=== PATIENT | male | born 1940 | race Caucasian/White ===

== ENCOUNTER 2022-08-15 06:14 | Day surgery (SDC) | payer MEDICARE, BC ==
[2022-08-15] VITALS (13 sets, daily range): BP systolic 101–121; BP diastolic 52–65
[~2022-08-15] VITALS: Ht 177.8 cm; Wt 94.4 kg
[~2022-08-15 06:14] MED LIST: ASPI-1071 PO; ATOR10TA87 PO; BUDE10.23 IH; CLOP75TA34 PO; FLAX100031 PO; FLO0.4C PO; LEVO50TA67 PO; METO-539 PO; OLME20TA15 PO; SALM1CAP4 PO
[2022-08-15] MEDS ORDERED: diphenhydrAMINE 25mg capsule PO PRN ×2 (06:40→08:10)
[2022-08-15] MEDS ORDERED: LORazepam 0.5 MG tablet PO PRN ×2 (06:40→08:10)
[2022-08-15] MEDS ORDERED: normal saline 1,000 ML IV SCH (06:40)
[2022-08-15 07:19] LABS: BASOPHILS # (AUTO) 0.1 X10'3 (0-0.2); BASOPHILS % (AUTO) 1.1 % (0-1); EOSINOPHILS # (AUTO) 0.2 X10'3 (0-0.9); EOSINOPHILS % (AUTO) 2.5 % (0-6); HEMATOCRIT 51.6 % (42.0-52.0); HEMOGLOBIN 17.7 g/dl (14.0-17.9); LYMPHOCYTES % (AUTO) 33.8 % (21-51); MEAN CORPUSCULAR HGB CONC 34.3 g/dL (33.0-36.5); MEAN CORPUSCULAR VOLUME 102.1 FL (78-98); MEAN PLATELET VOLUME 8.4 FL (7.4-10.4); MONOCYTES # (AUTO) 0.6 X10'3 (0-0.9); MONOCYTES % (AUTO) 10.6 % (2-12); NEUTROPHILS # (AUTO) 3.1 X10'3 (1.8-7.7); PLATELET COUNT 63 X10'3 (140-440); RED BLOOD COUNT 5.05 X10'6 (4.70-6.10)
[2022-08-15] MEDS ORDERED: FLUT1BLS4 (07:19)
[2022-08-15] MEDS ORDERED: UBID100C45 PO (07:19)
[2022-08-15] MEDS ORDERED: ZINC PO (07:19)
[2022-08-15] MEDS ORDERED: FEBU40TA3 PO (07:19)
[2022-08-15] MEDS ORDERED: LEVO150T PO (07:19)
[2022-08-15 07:21] LABS: APTT 29 SECONDS (22-32)
[2022-08-15] MEDS ORDERED: fentaNYL/PF 50MCG/1 ML 2ML syringe ONE (07:31)
[2022-08-15] MEDS ORDERED: midazolam 1 mg/ML 2ml injection ONE (07:31)
[2022-08-15] MEDS ORDERED: nitroGLYCERIN-Tridil 50MG/D5W 250 ML IV ONE (07:31)
[2022-08-15] MEDS ORDERED: verapamil 2.5 mg/ml inj IV ONE (07:31)
[2022-08-15] MEDS ORDERED: heparin 1,000unit/ml 10ml vial 10 ML ONE (07:32)
[2022-08-15] MEDS ORDERED: LIDOcaine 1% (10mg/ml) 2ml vial ONE (07:32)
[2022-08-15] MEDS ORDERED: iohexol 350MG/ML 100ml bottle IV ONE ×2 (07:32→08:51)
[2022-08-15] MEDS ORDERED: iohexol 350 MG/ML 50ML vial IV ONE (07:32)
[2022-08-15 07:55] LABS: ALBUMIN 3.8 G/DL (3.4-5.0); ANION GAP 12 (8-16); BLOOD UREA NITROGEN 20 MG/DL (7-18); BUN/CREATININE RATIO 13.6 (5.4-32.0); CALCIUM 9.3 MG/DL (8.5-10.1); CHLORIDE 106 MMOL/L (99-107); CREATININE 1.47 MG/DL (0.60-1.10); GLUCOSE 97 MG/DL (70-104); POTASSIUM 4.3 MMOL/L (3.5-5.1); SODIUM 141 MMOL/L (135-145); TOTAL CARBON DIOXIDE 22.9 MMOL/L (24-32); eGFR 46 ML/MIN
[2022-08-15] MEDS ORDERED: sodium bicarbonate 1meq/ml syr 150 ML in dextrose 5%-water 1,000 ML IV ONE (08:10)
[2022-08-15] MEDS ORDERED: heparin 25,000 UNIT/250ml bag 250 ML IV ONE (08:42)
[2022-08-15] MEDS ORDERED: clopidogrel 300mg tablet ONE (09:08)
[2022-08-15] MEDS ORDERED: HYDROcodone/acetaminophen 10/325mg tab PO PRN (10:00)
[2022-08-15] MEDS ORDERED: ondansetron/PF 4mg/2ml inj IV PRN (10:00)
[2022-08-15] MEDS ORDERED: proCHLORperazine 10 MG/2 ml inj IV PRN (10:00)
[2022-08-15] MEDS ORDERED: OXAZEpam 15mg capsule PO PRN (10:00)
[2022-08-15] MEDS ORDERED: HYDROcodone/acetaminophen 5mg/325mg tablet PO PRN (10:00)
[2022-08-15] MEDS ORDERED: SODIUM BICARB 150mEq/D5W 1L 1,000 ML IV ONE (10:05)
--- NOTE | 2022-08-15 10:15 | NUR ---
Waiting to deflate vasc band due to heparin drip still infusing and due to low platelet count, aware.
--- NOTE | 2022-08-15 10:30 | NUR ---
Heparin drip turned off per orders.
[2022-08-15] MEDS ORDERED: ACETYLCYSTEINE 200 MG/1 ML 4 ML ORAL SOLUTION PO SCH (11:10)
--- NOTE | 2022-08-15 12:45 | NUR ---
Dr. Mcneill at bedside talking with pt and . Dr. Mcneill gave okay for pt to go home at 1500.
[2022-08-16] MEDS ORDERED: clopidogrel 75mg tablet PO SCH (08:00)
== END 2022-08-15 15:00 | disposition home or self-care (01) ==
LOC: SSTAY O 06:14
PROVIDERS: ATTEND Internal Medicine Cardiovascular Disease
DX: R94.39 Abnormal result of other cardiovascular function study (principal); I25.10 Atherosclerotic heart disease of native coronary artery without angina pectoris; E78.5 Hyperlipidemia, unspecified; I12.9 Hypertensive chronic kidney disease with stage 1 through stage 4 chronic kidney disease, or unspecified chronic kidney disease; N18.9 Chronic kidney disease, unspecified; G47.30 Sleep apnea, unspecified; E66.9 Obesity, unspecified; E03.9 Hypothyroidism, unspecified; Z79.01 Long term (current) use of anticoagulants; Z79.899 Other long term (current) drug therapy
CPT/HCPCS: 36415; 76937; 80048; 85025; 85347; 85610; 85730; 93005; 93459; 99152; 99153; C1725; C1751; C1769; C1874; C1894; C9600; J1644; J2250; J3010; J3490; J7030; Q0163; Q9967; A4615; A6258; A6402

== ENCOUNTER 2022-09-19 06:15 | Day surgery (SDC) | payer MEDICARE, BC ==
[2022-09-18 10:43] LABS: BASOPHILS # (AUTO) 0.1 X10'3 (0-0.2); BASOPHILS % (AUTO) 0.6 % (0-1); EOSINOPHILS # (AUTO) 0.1 X10'3 (0-0.9); HEMATOCRIT 48.9 % (42.0-52.0); HEMOGLOBIN 16.9 g/dl (14.0-17.9); LYMPHOCYTES # (AUTO) 1.4 X10'3 (1.1-4.8); LYMPHOCYTES % (AUTO) 12.4 % (21-51); MEAN CORPUSCULAR HEMOGLOBIN 35.5 PG (27.0-31.0); MEAN CORPUSCULAR HGB CONC 34.6 g/dL (33.0-36.5); MEAN CORPUSCULAR VOLUME 102.5 FL (78-98); MEAN PLATELET VOLUME 8.2 FL (7.4-10.4); MONOCYTES # (AUTO) 1.1 X10'3 (0-0.9); MONOCYTES % (AUTO) 10.4 % (2-12); NEUTROPHILS # (AUTO) 8.2 X10'3 (1.8-7.7); NEUTROPHILS % (AUTO) 75.6 % (42-75); PLATELET COUNT 75 X10'3 (140-440); RED BLOOD COUNT 4.77 X10'6 (4.70-6.10); RED CELL DISTRIBUTION WIDTH 14.7 % (11.5-14.5); WHITE BLOOD COUNT 10.9 X10'3 (4.5-11.0)
[2022-09-18 10:48] LABS: ALBUMIN 3.8 G/DL (3.4-5.0); ANION GAP 7 (8-16); BLOOD UREA NITROGEN 19 MG/DL (7-18); BUN/CREATININE RATIO 10.1 (10.0-20.0); CALCIUM 9.9 MG/DL (8.5-10.1); CHLORIDE 106 MMOL/L (99-107); CREATININE 1.89 MG/DL (0.60-1.10); GLUCOSE 105 MG/DL (70-104); SODIUM 142 MMOL/L (135-145); TOTAL CARBON DIOXIDE 28.8 MMOL/L (24-32); eGFR 34 ML/MIN
[2022-09-18 10:50] LABS: APTT 30 SECONDS (22-32)
[2022-09-19] VITALS (13 sets, daily range): BP systolic 93–122; BP diastolic 50–73
[~2022-09-19] VITALS: Ht 177.8 cm; Wt 93.5 kg
[~2022-09-19 06:15] MED LIST changes: -ASPI-1071 PO; -BUDE10.23 IH; +FEBU40TA3 PO; -FLO0.4C PO; +FLUT1BLS4; +LEVO150T PO; -LEVO50TA67 PO; +UBID100C45 PO; +ZINC PO
[2022-09-19] MEDS ORDERED: acetylcysteine 200 MG/ml 4ml vial PO PRN (06:27)
[2022-09-19] MEDS ORDERED: normal saline 1,000 ML IV SCH (06:30)
[2022-09-19] MEDS ORDERED: diphenhydrAMINE 25mg capsule PO PRN (06:30)
[2022-09-19] MEDS ORDERED: LORazepam 0.5 MG tablet PO PRN (06:30)
[2022-09-19] MEDS ORDERED: ASPI-611 PO (06:35)
[2022-09-19] MEDS ORDERED: ROSU40TA22 PO (06:36)
[2022-09-19] MEDS ORDERED: heparin 25,000 UNIT/250ml bag 250 ML IV ONE (07:23)
[2022-09-19] MEDS ORDERED: nitroGLYCERIN-Tridil 50MG/D5W 250 ML IV ONE (07:23)
[2022-09-19] MEDS ORDERED: LIDOcaine 1% 30ml preserv. free vial ONE (07:24)
[2022-09-19] MEDS ORDERED: midazolam 1 mg/ML 2ml injection ONE (07:24)
[2022-09-19] MEDS ORDERED: iohexol 350MG/ML 100ml bottle IV ONE (07:24)
[2022-09-19] MEDS ORDERED: heparin 1,000unit/ml 10ml vial 10 ML ONE (07:24)
[2022-09-19] MEDS ORDERED: verapamil 2.5 mg/ml inj IV ONE (07:24)
[2022-09-19] MEDS ORDERED: fentaNYL/PF 50MCG/1 ML 2ML syringe ONE (07:24)
[2022-09-19] MEDS ORDERED: clopidogrel 300mg tablet ONE (09:41)
[2022-09-19] MEDS ORDERED: clopidogrel 75mg tablet PO SCH (10:35)
[2022-09-20] MEDS ORDERED: SODIUM BICARB 150mEq/D5W 1L 999 ML IV SCH ×2 (06:30)
== END 2022-09-19 16:00 | disposition home or self-care (01) ==
LOC: SSTAY O 06:15
PROVIDERS: ATTEND Internal Medicine Cardiovascular Disease
DX: I25.10 Atherosclerotic heart disease of native coronary artery without angina pectoris (principal); E78.5 Hyperlipidemia, unspecified; I10 Essential (primary) hypertension; Z79.82 Long term (current) use of aspirin; Z79.01 Long term (current) use of anticoagulants
CPT/HCPCS: 36415; 76937; 80048; 85025; 85347; 85610; 85730; 93005; 99152; 99153; A6258; C1725; C1751; C1769; C1874; C1892; C1894; C9600; C9601; J1644; J2250; J3010; J3490; J7030; Q0163; Q9967; A4615; A6402

== ENCOUNTER 2023-01-27 03:03 | Emergency (ER) | payer MEDICARE, BC ==
[~2023-01-27] VITALS: Ht 177.8 cm; Wt 86.4 kg
[~2023-01-27 03:03] MED LIST changes: -ATOR10TA87 PO; -FEBU40TA3 PO; -FLAX100031 PO; -FLUT1BLS4; +LACT10SO88 PO; -OLME20TA15 PO; +ROSU40TA22 PO; -SALM1CAP4 PO; -UBID100C45 PO; -ZINC PO
[2023-01-27 03:20] VITALS: BP 123/68; PULSE 75; RESP 18; O2SAT 96
[2023-01-27] MEDS ORDERED: oxymetazoline 15 ML nasal spray NS ONE (04:15)
[2023-01-27 05:06] LABS: ALBUMIN 2.9 G/DL (3.4-5.0); ANION GAP 11 (8-16); BLOOD UREA NITROGEN 25 MG/DL (7-18); BUN/CREATININE RATIO 16.7 (10.0-20.0); CALCIUM 9.6 MG/DL (8.5-10.1); CHLORIDE 104 MMOL/L (99-107); GLUCOSE 108 MG/DL (70-104); POTASSIUM 4.2 MMOL/L (3.5-5.1); SODIUM 139 MMOL/L (135-145); eCRCL 40 ML/MIN; eGFR 45 ML/MIN
[2023-01-27 05:08] LABS: APTT 31 SECONDS (22-32); INR 1.2 INR; PROTHROMBIN TIME 13.2 SECONDS (9.0-12.0)
[2023-01-27] MEDS ORDERED: CEPH-585 PO (05:34)
[2023-01-27 05:48] LABS: BASOPHILS % (AUTO) 0.5 % (0-1); EOSINOPHILS # (AUTO) 0.1 X10'3 (0-0.9); EOSINOPHILS % (AUTO) 2.1 % (0-6); HEMATOCRIT 44.6 % (42.0-52.0); HEMOGLOBIN 15.5 g/dl (14.0-17.9); LYMPHOCYTES # (AUTO) 0.8 X10'3 (1.1-4.8); MEAN CORPUSCULAR HEMOGLOBIN 37.7 PG (27.0-31.0); MEAN CORPUSCULAR HGB CONC 34.7 g/dL (33.0-36.5); MEAN CORPUSCULAR VOLUME 108.8 FL (78-98); MEAN PLATELET VOLUME 7.3 FL (7.4-10.4); MONOCYTES # (AUTO) 0.7 X10'3 (0-0.9); MONOCYTES % (AUTO) 13.9 % (2-12); NEUTROPHILS # (AUTO) 3.6 X10'3 (1.8-7.7); NEUTROPHILS % (AUTO) 68.5 % (42-75); PLATELET COUNT 87 X10'3 (140-440); RED CELL DISTRIBUTION WIDTH 17.1 % (11.5-14.5); WHITE BLOOD COUNT 5.2 X10'3 (4.5-11.0)
[2023-01-27 05:55] VITALS: TEMP 97.7
== END 2023-01-27 06:03 | disposition home or self-care (01) ==
LOC: ER 03:04
DX: R04.0 Epistaxis (principal); Z79.899 Other long term (current) drug therapy
CPT/HCPCS: 30901; 30903; 80048; 85025; 85610; 85730; 99284

== ENCOUNTER 2023-02-11 07:36 | Day surgery (SDC) | payer MEDICARE, BC ==
[~2023-02-11] VITALS: Ht 177.8 cm; Wt 91.8 kg
[2023-02-11] VITALS (7 sets, daily range): BP systolic 113–128; BP diastolic 58–71; PULSE 74–78; RESP 14–17; TEMP 98; O2SAT 93–95
[2023-02-11] MEDS ORDERED: albumin 25% 100mL bottle x 1 IV PRN (08:00)
[2023-02-11] MEDS ORDERED: normal saline 1000ml 1,000 ML IV PRN (08:00)
[2023-02-11] MEDS ORDERED: FLUT1BLS4 INH (09:15)
[2023-02-11] MEDS ORDERED: IPRA3AMP31 NEB (09:15)
[2023-02-11 10:50] LABS: GLUCOSE,BODY FLUID 116 MG/DL; LDH,BODY FLUID 67 U/L
[2023-02-11 11:04] LABS: ALBUMIN,BODY FLUID < 0.6 G/DL; TOTAL PROTEIN,BODY FLUID < 2.0 G/DL
[2023-02-11 11:10] LABS: BF MESOTHELIAL CELLS FEW; BFAPPEAR CLOUDY; BFCOLOR YELLOW; BFSOURCE OTHER; BFVOLUME 55 ML; LYMPHOCYTES,BODY FLUID 53 %; MONOCYTES,BODY FLUID 25 %; NEUTROPHILS,BODY FLUID 22 %
[2023-02-11 11:17] LABS: BF RBC COUNT 255 /CU MM; BF WBC COUNT 205 /CU MM (0-1000)
== END 2023-02-11 09:30 | disposition home or self-care (01) ==
LOC: SSTAY O 07:36
PROVIDERS: ATTEND Radiology Vascular & Interventional Radiology
DX: R18.8 Other ascites (principal); C22.0 Liver cell carcinoma; I25.10 Atherosclerotic heart disease of native coronary artery without angina pectoris; J44.9 Chronic obstructive pulmonary disease, unspecified; D69.6 Thrombocytopenia, unspecified; E88.09 Other disorders of plasma-protein metabolism, not elsewhere classified; I12.9 Hypertensive chronic kidney disease with stage 1 through stage 4 chronic kidney disease, or unspecified chronic kidney disease; N18.9 Chronic kidney disease, unspecified; Z98.890 Other specified postprocedural states; Z95.1 Presence of aortocoronary bypass graft; Z79.899 Other long term (current) drug therapy; Z79.01 Long term (current) use of anticoagulants; Z96.659 Presence of unspecified artificial knee joint
CPT/HCPCS: 49083; 82042; 82945; 83615; 84157; 87070; 89051; C1729; J3490; A6258; A6449

== ENCOUNTER 2023-02-21 08:02 | Day surgery (SDC) | payer MEDICARE, BC ==
[~2023-02-21] VITALS: Ht 177.8 cm; Wt 91.5 kg
[2023-02-21] VITALS (7 sets, daily range): BP systolic 101–132; BP diastolic 57–70; PULSE 71–82; RESP 15–19; TEMP 97.7; O2SAT 92–94
[~2023-02-21 08:02] MED LIST changes: +FLUT1BLS4 INH; +IPRA3AMP31 NEB; -ROSU40TA22 PO
[2023-02-21] MEDS ORDERED: albumin 25% 100mL bottle x 1 IV PRN (08:20)
[2023-02-21 11:13] LABS: GLUCOSE,BODY FLUID 113 MG/DL; TOTAL PROTEIN,BODY FLUID < 2.0 G/DL
[2023-02-21 12:02] LABS: BFSOURCE ASCITES FLD
[2023-02-21 12:03] LABS: BF RBC COUNT 136000 /CU MM; BF WBC COUNT 117 /CU MM (0-1000); BFAPPEAR BLOODY; BFCOLOR RED; BFVOLUME 60 ML; LYMPHOCYTES,BODY FLUID 62 %; MONOCYTES,BODY FLUID 24 %; NEUTROPHILS,BODY FLUID 14 %
== END 2023-02-21 11:30 | disposition home or self-care (01) ==
LOC: SSTAY O 08:02
PROVIDERS: ATTEND Radiology Vascular & Interventional Radiology
DX: R18.8 Other ascites (principal); I25.10 Atherosclerotic heart disease of native coronary artery without angina pectoris; J44.9 Chronic obstructive pulmonary disease, unspecified; I12.9 Hypertensive chronic kidney disease with stage 1 through stage 4 chronic kidney disease, or unspecified chronic kidney disease; N18.9 Chronic kidney disease, unspecified; D69.6 Thrombocytopenia, unspecified; E88.09 Other disorders of plasma-protein metabolism, not elsewhere classified; Z98.890 Other specified postprocedural states; Z95.1 Presence of aortocoronary bypass graft; Z96.659 Presence of unspecified artificial knee joint; Z85.05 Personal history of malignant neoplasm of liver; Z79.899 Other long term (current) drug therapy
CPT/HCPCS: 49083; 82945; 84157; 87070; 89051; C1729; J3490; A6258; A6449

== ENCOUNTER 2023-02-22 09:03 | Outpatient (CLI) | payer MEDICARE, BC | END 2023-02-22 23:59 | disposition home or self-care (01) | LOC: RAD 09:03 | PROVIDERS: ATTEND Transplant Surgery | DX: C22.0 Liver cell carcinoma (principal); K75.81 Nonalcoholic steatohepatitis (NASH); D69.6 Thrombocytopenia, unspecified; R91.1 Solitary pulmonary nodule; K74.60 Unspecified cirrhosis of liver; N28.1 Cyst of kidney, acquired; K80.20 Calculus of gallbladder without cholecystitis without obstruction; R18.8 Other ascites; J98.11 Atelectasis; I25.10 Atherosclerotic heart disease of native coronary artery without angina pectoris | CPT/HCPCS: 71250; 74181 ==

== ENCOUNTER 2023-03-05 06:35 | Day surgery (SDC) | payer MEDICARE, BC ==
[~2023-03-05] VITALS: Ht 177.8 cm; Wt 92.0 kg
[2023-03-05 06:51] VITALS: BP 119/69; PULSE 84; RESP 14; TEMP 97.3; O2SAT 92
[2023-03-05] MEDS ORDERED: ONDA-103 PO (06:54)
[2023-03-05] MEDS ORDERED: MORP15TA PO (06:54)
[2023-03-05] MEDS ORDERED: albumin 25% 100mL bottle x 1 IV PRN (06:55)
--- NOTE | 2023-03-05 09:14 | NUR ---
No fluid, procedure cancelled.
== END 2023-03-05 09:15 | disposition home or self-care (01) ==
LOC: SSTAY O 06:35
PROVIDERS: ATTEND Radiology Vascular & Interventional Radiology
DX: R18.8 Other ascites (principal); Z53.8 Procedure and treatment not carried out for other reasons; I12.9 Hypertensive chronic kidney disease with stage 1 through stage 4 chronic kidney disease, or unspecified chronic kidney disease; N18.9 Chronic kidney disease, unspecified; D69.6 Thrombocytopenia, unspecified; J44.9 Chronic obstructive pulmonary disease, unspecified; I25.10 Atherosclerotic heart disease of native coronary artery without angina pectoris; E88.09 Other disorders of plasma-protein metabolism, not elsewhere classified; Z95.1 Presence of aortocoronary bypass graft; Z98.890 Other specified postprocedural states; Z79.899 Other long term (current) drug therapy; Z85.05 Personal history of malignant neoplasm of liver; Z96.652 Presence of left artificial knee joint
CPT/HCPCS: 76705